=== PATIENT | male | born 1975 | race Caucasian/White ===

== ENCOUNTER 2020-01-16 03:12 | Outpatient (CLI) | payer OTHER, SELFPAY ==
--- NOTE | 2020-01-16 10:30 | DI.RAD_ITS ---
EXAM: XR SHOULDER RT COMPLETE 2+V CLINICAL HISTORY: consider AC separation,ACUTE RT SHOULDER PAIN,M25.511,G89.11 TECHNIQUE: COMPARISON: No exams were available for comparison FINDINGS: Five views were obtained. There is lucency projected over the glenoid on the internal rotation views which is poorly defined not confirmed on other views. Fracture or other bony process not excluded i nvolving the glenoid. Humeral head appears unremarkable. Some slight hypertrophic degenerative solomon ges of the AC joint noted. Cartilaginous joint space of the glenohumeral joint appears fairly well m aintained. IMPRESSION: Question glenoid deformity, fracture not excluded. Additional evaluation with CT recommended if clin ically appropriate. RADIATION DOSE DELIVERED: Total DLP
--- NOTE | 2020-01-16 15:00 | DI.CT_ITS ---
EXAM: CT UPPER EXTREMITY RT WO CLINICAL HISTORY: Plain film reveal lucency - ? frac vs other pathOLOGY, ACUTE PAIN RT SHOULD TECHNIQUE: COMPARISON: No exams were available for comparison FINDINGS: CT examination of the right shoulder was performed utilizing multi slice acquisition multiplanar amanda nstruction. The patient reportedly has a history trauma to the shoulder. Visualized right lung is clear. No axillary adenopathy or mass. There is an area of cortical loss and roughening of the posterior aspect of the glenoid with associat ed small quantities gas in the adjacent soft tissues. Findings are nonspecific and could conceivably represent degenerative change with vacuum joint phenomenon. However a penetrating injury or osteomy elitis of the glenoid are not excluded. Otherwise the bones appear intact. No gross fluid collection identified on soft tissue windows. IMPRESSION: Irregular cortical deformity/cortical loss of posterior aspect of the glenoid with a soft tissue gas component; osteomyelitis or penetrating injury should be considered. Please correlate clinically, ad ditional evaluation with MRI may be indicated. RADIATION DOSE DELIVERED: 383.76mGy.cm Total DLP
== END 2020-01-16 03:32 ==
PROVIDERS: Visit Provider Nurse Practitioner Family
DX: G89.11 Acute pain due to trauma (principal); M25.511 Pain in right shoulder; M89.8X1 Other specified disorders of bone, shoulder
CPT/HCPCS: 73030; 73200

== ENCOUNTER 2020-01-16 16:33 | Emergency (ER) | payer OTHER, SELFPAY ==
[2020-01-16 16:37] VITALS: BP 132/83; PULSE 62; RESP 16; TEMP 36.2; O2SAT 98
--- NOTE | 2020-01-16 16:46 | ED.GENADUL_ITS ---
Discharge Plan Disposition Patient Disposition: HOME Condition: Stable Discharge Details Clinical Impression: Acute pain of right shoulder due to trauma Primary Care Provider: Crys Monk ED Provider: Peyman Kenney Home Meds and New Rx's Prescriptions: No Action No Known Home Meds RF: 0 Discharge Instructions Additional Instructions: your blood work did not show evidence of infection call orthopedics Sunday to arrange for an appointment if you develop fevers or severe worsening pain return to the emergency department Referrals: Flo Alexis MD [ [facility] STAFF PHYSICIAN] - Medical Decision Making 44 yo male who denies chronic medical problems comes in with right shoulder pain. He states at work yesterday he was carrying a ladder and it fell and he went to catch it causing him to hurt his right shoulder, no loc and no head trauma. He had an xray and then CT today showing cortical defect of glenoid and small amount of free air so was directed here by pcp. Dr. Alexis from ortho reviewed ct and called ahead and feels it is most likely a glenoid fx with free air from this, requested inflammatory markers and if reassuring exam and labs can f/u next week. He has no redness of the joint or warmth, pain with palpation to the anterior right shoulder with full range of motion and intact distal sensation and pulses and has not had any fever or chills. Given the mechanism and exam feel infection unlikely, will obtain cbc, crp and esr and reassess. labs reassuring and he remains stable, declines sling. Will have him f/u with ortho Differential Diagnosis Differential Diagnosis: fx, sprain, strain, septic joint HPI General Mode of arrival: ambulatory . Date/Time Provider Initiated Documentation: 01/16/20 16:34 . Limitations to Documentation: no limitations . Information obtained by: patient . History of Present Illness 44 year old M presents to the emergency department with the chief complaint of right shoulder pain, Patient started experiencing this day(s) (1) and it has been constant. Rest improves symptom(s), Movement worsens symptoms . Patient notes no other symptoms.. Related Data Home Medications Medication Instructions Recorded Confirmed Unknown [No Known Home Meds] 01/16/20 01/16/20 Allergies Allergy/AdvReac Type Severity Reaction Status Date / Time Environmental Allergy Intermediate Uncoded 01/16/20 16:43 General Stated Complaint: Orthopedic HANANE: 3 Review of Systems All systems reviewed & are unremarkable except as noted in HPI and below Constitutional Constitutional: Denies chills, Denies fever(s) and Denies weakness Cardiovascular Cardiovascular: Denies chest pain and Denies dyspnea Respiratory Respiratory: Denies cough and Denies dyspnea Gastrointestinal Gastrointestinal: Denies abdominal pain, Denies nausea and Denies vomiting Genitourinary Genitourinary: Denies dysuria Musculoskeletal Musculoskeletal: Denies joint swelling Integumentary/Breasts Skin/Breast: Denies rash Neurologic Neurologic: Denies weakness [facility] Family History Mother Thyroid condition Father Thyroid condition Sister No problems noted. Sister No problems noted. Grandmother No problems noted. Daughter No problems noted. Social History Smoking/Tobacco Use Status: Never Smoking risk assessment performed?: Yes Alcohol Intake: current Alcohol Intake frequency: holidays/special occasions only Drug use: Never Substance use type: does not use Do you feel safe at home: Yes Do you feel safe in your relationship?: Yes Exam Const General: no acute distress Orientation: alert HENMT Head: normal to inspection Ears: external ears normal General nose exam: external nose normal Mouth: moist mucous membranes Eyes General: appearance normal, both eyes and all related structures Neck Neck: normal visual inspection Resp Effort & Inspection: normal respiratory effort and able to speak in complete sentences Cardio Rate: regular rate Skin General skin exam: no rashes or lesions noted Neuro General: patient alert and patient oriented x3 Extrem General: normal to inspection Psych Mental Status: mental status grossly normal Course Vital Signs Vital signs: Vital Signs Temperature 36.2 C L 01/16/20 16:37 Pulse 62 01/16/20 16:37 Respiratory Rate 16 01/16/20 16:37 Blood Pressure 132/83 01/16/20 16:37 Pulse Oximetry 98 01/16/20 16:37 Temperature 36.2 C L 01/16/20 16:37 Temperature Source Skin 01/16/20 16:37 Pulse 62 01/16/20 16:37 Respiratory Rate 16 01/16/20 16:37 Respiratory Effort Non-Labored 01/16/20 16:41 Blood Pressure 132/83 01/16/20 16:37 Blood Pressure Position Sitting 01/16/20 16:37 Pulse Oximetry 98 01/16/20 16:37 Oxygen Delivery Method Room Air 01/16/20 16:37 Oxygen Flow Rate 0 01/16/20 16:37 Pain Level 1 01/16/20 16:37 Comment 01/16/20 16:37
[2020-01-16 17:18] LABS: Abs Immature Grans 0.03 10^3/uL (0.0-0.06); Absolute Basophil Count 0.04 10^3/uL (0.0-0.2); Absolute Eosinophil Count 0.14 10^3/uL (0.0-0.7); Absolute Monocyte Count 0.42 10^3/uL (0.1-0.8); Absolute Neutrophil Count 3.26 10^3/uL (1.2-6.7); Basophils % 0.7; Eosinophils % 2.3; HCT 46.8 % (40.0-50.0); HGB 16.3 g/dL (13.5-17.5); Immature Grans % 0.5; Lymphocytes % 35.1; MCH 30.7 pg (27.0-33.0); MCHC 34.8 % (32.0-36.0); MCV 88.1 fL (80-95); MPV 9.4 fL (8.0-11.0); Neutrophils % 54.4; Nucleated RBC 0 %; Platelet Count 245 10^3/uL (130-400); RBC 5.31 10^6/uL (4.36-5.78); RDW 11.8 % (11.8-14.1); RDW-SD 37.8 fL; WBC 5.99 10^3/uL (4.4-10.8)
[2020-01-16 17:20] LABS: C-Reactive Protein < 0.05 mg/dL (0.0-0.3)
[2020-01-16 17:52] LABS: ESR 5 mm/hr (0-15)
== END 2020-01-16 18:09 | disposition home or self-care (01) ==
PROVIDERS: Emergency Provider Emergency Medicine
DX: M25.511 Pain in right shoulder (principal); X50.9XXA Other and unspecified overexertion or strenuous movements or postures, initial encounter; R93.7 Abnormal findings on diagnostic imaging of other parts of musculoskeletal system
CPT/HCPCS: 36415; 85652; 99283; 85025; 86140

== ENCOUNTER 2020-01-27 01:10 | Outpatient (CLI) | payer OTHER, SELFPAY ==
--- NOTE | 2020-01-27 14:10 | DI.MRI_ITS ---
EXAM: MR UPPER JOINT RT WO CLINICAL HISTORY: Glenoid deformity,TRAUMATIC TEAR RT ROTATOR CUFF,S46.011A. TECHNIQUE: Multiplanar multisequence MRI was performed. COMPARISON: CR XR SHOULDER RT COMPLETE 2+V from 01/16/[address] UPPER EXTREMITY RT WO from 01/16/2020 FINDINGS: BONES: There is a multi-cystic lesion in the posterior aspect of the glenoid with extension into the adjacent soft tissues. This measures 1.9 x 1.3 cm. JOINTS: Hyperintense signal seen on the T2 weighted images in the distal clavicle and adjacent acromi on at the AC joint. Subchondral cysts are noted. No findings to suggest an occult fracture are seen . Findings are suspicious for degenerative changes. AC joint sprain cannot be excluded. The glenoh umeral joint is normal. TENDONS: Supraspinatus: Unremarkable. Infraspinatus: Unremarkable. Subscapularis: Unremarkable. Teres [place]: Unremarkable. Biceps and [place]: Unremarkable. MUSCLES: Unremarkable. GLENOID LABRUM: Unremarkable on this noncontrast examination. SOFT TISSUES: Please see above. LIGAMENTS: Please see above. OTHER: There is a small amount of fluid in the subacromial subdeltoid space. IMPRESSION: 1. Multi-cystic 1.9 x 1.3 cm lesion involving the posterior glenoid. Differential considerations inc lude but are not limited to an intraosseous paralabral cyst, ganglion cyst, a nerve/nerve sheath lesi on cannot be excluded. A cystic neoplasm cannot be excluded. 2. Abnormal signal seen across the acromioclavicular joint as described. This may represent degenera tive changes. Contusion or ligament sprain cannot be excluded. Please correlate clinically. DATA REPOSITORY:
== END 2020-01-27 01:30 ==
PROVIDERS: Visit Provider Student in an Organized Health Care Education/Training Program
DX: M25.811 Other specified joint disorders, right shoulder (principal)
CPT/HCPCS: 73221

== ENCOUNTER 2020-02-20 17:53 | Outpatient (REF) | payer BC, SELFPAY ==
[2020-02-23 14:23] LABS: COVID-19 RT-PCR Result NEGATIVE (Negative)
== END 2020-02-20 18:13 ==
LOC: LBN 17:53
PROVIDERS: Visit Provider Nurse Practitioner Family
DX: R68.83 Chills (without fever) (principal)
CPT/HCPCS: U0003

== ENCOUNTER 2020-03-01 02:39 | Outpatient (CLI) | payer BC, SELFPAY ==
[2020-03-01 13:42] LABS: ALT 46 U/L (16-63); AST 29 U/L (15-37); Albumin 4.7 g/dL (3.4-5.0); Alkaline Phosphatase 68 U/L (46-116); Anion Gap 11.9 mmol/L (3-11); BUN 10 mg/dL (7-18); Bilirubin, Total 2.3 mg/dL (0.2-1.0); CO2 27.1 mmol/L (21.0-32.0); CREATININE 1.19 mg/dL (0.70-1.30); Calculated LDL 94 mg/dL (<100); Chloride 103 mmol/L (98-107); Cholesterol 134 mg/dL (<200); Glucose 77 mg/dL (74-106); HDL Cholesterol 25 mg/dL (40-60); Potassium 3.7 mmol/L (3.5-5.1); Sodium 142 mmol/L (136-145); TSH (W/Ref FT4) 0.28 uIU/mL (0.36-3.74); Total Protein 7.4 g/dL (6.4-8.2); Triglyceride 76 mg/dL (<150)
[2020-03-01 13:58] LABS: FREE T4 1.23 ng/dL (0.76-1.46)
== END 2020-03-01 02:59 ==
DX: Z00.00 Encounter for general adult medical examination without abnormal findings (principal); R42 Dizziness and giddiness; G47.8 Other sleep disorders; G47.00 Insomnia, unspecified; Z13.220 Encounter for screening for lipoid disorders
CPT/HCPCS: 36415; 80053; 80061; 84439; 84443

== ENCOUNTER 2020-06-01 02:20 | Outpatient (CLI) | payer OTHER, SELFPAY ==
[2020-06-01 11:35] LABS: Source Nasal/Nares
[2020-06-01 17:03] LABS: COVID-19 PCR Negative (Negative)
== END 2020-06-01 02:21 | disposition home or self-care (01) ==
PROVIDERS: Visit Provider Student in an Organized Health Care Education/Training Program
DX: Z20.822 Contact with and (suspected) exposure to COVID-19 (principal); Z01.818 Encounter for other preprocedural examination
CPT/HCPCS: 87635

== ENCOUNTER 2020-06-03 09:57 | Day surgery (SDC) | payer OTHER, SELFPAY ==
[2020-06-03 10:08] VITALS: BP 134/84; PULSE 64; RESP 16; TEMP 36.5; O2SAT 95
[2020-06-03] MEDS: Lactated Ringers 1,000 ML 100 ML IV (10:36)
[2020-06-03] MEDS: ceFAZolin 2 GM/50 ML BAG IVPB (13:12)
[2020-06-03] MEDS: EPINEPHrine 30 MG/30 ML VIAL (13:57)
[2020-06-03 15:30] VITALS: BP 96/56; PULSE 64; RESP 18; TEMP 36.6; O2SAT 95
[2020-06-03 15:35] VITALS: BP 111/59; PULSE 64; RESP 18; TEMP 36.6; O2SAT 95
[2020-06-03 15:40] VITALS: BP 114/60; PULSE 66; RESP 23; TEMP 36.6; O2SAT 94
[2020-06-03 15:55] VITALS: BP 108/51; PULSE 74; RESP 26; TEMP 36.6; O2SAT 95
--- NOTE | 2020-06-03 15:59 | W.PM.DSUDISC ---
Discharge Plan Disposition Patient Disposition: HOME Condition: Stable Discharge Details Reason For Visit: Right shoulder surgery Attending Provider: Harinder Rodriguez Primary Care Provider: Crys Monk Home Meds and New Rx's Prescriptions: New naproxen 250 mg tablet 250 - 500 mg PO BID PRN (Reason: Moderate pain or swelling) Qty: 60 RF: 0 aspirin 81 mg tablet,delayed release (DR/EC) 81 mg PO DAILY 14 Days Qty: 14 RF: 0 oxycodone 5 mg tablet 5 - 10 mg PO Q4H PRN (Reason: moderate to severe pain) Qty: 22 RF: 0 Discontinued acetaminophen 500 mg capsule 1,000 mg PO Q6H PRNRF: 0 ibuprofen 200 mg Tablet 600 mg PO PRN PRNRF: 0 Discharge Instructions Additional Instructions: Surgery: Shoulder arthroscopy with extensive debridement, subacromial decompression, and open biceps tenodesis Activity: You should gradually increase range of motion motion and use of your shoulder. Please perform daily stretching exercises. You may use your shoulder for all regular activities. Avoid heavy lifting, reaching overhead, and lifting away from body for approximately 6 to 8 weeks. You may use the sling whenever you are out of the house for a few weeks. At home it is best to remove the sling and rest the arm on a pillow at your side or support the operative side with your other hand. A physical therapy prescription will be sent electronically to start in about 2-3 weeks. Prescriptions: Aspirin 81 mg take 1 daily to prevent a blood clot for 2 weeks Naproxen 250 mg take 1-2 every 12 hours with a meal as needed for moderate pain Oxycodone 5 mg take 1-2 every 4-6 hours as needed for severe pain Avoid Tylenol (acetaminophen) given elevated bilirubin These pain medications may be taken all at once or in different combinations as needed. Also, recommend Colace (docusate) as a stool softener as surgery and pain medicine cause constipation. Dressings: Remove shoulder bandage after 3 days. Leave the sticky Steri-Strips in place until they fall off or remove them after you shower. Cover the incisions with Band-Aids or leave them open to air. The biceps bandage (inside upper arm) is glued on separately. You may leave this one on a few days longer if it is difficult to remove. There is also glue underneath this bandage that can be left in place until it peels off. You may shower after 5 days. Follow-up: 10-[address] Rodriguez (06/16/20 at 8:30 AM) You may take off the leg compression stockings this evening at home. You may also leave them on a few days longer if you have a history of leg swelling or edema. Let us know right away if you develop any redness, drainage, fevers, chest pain, or trouble breathing. Do not drink alcohol or drive for at least 24 hours after anesthesia. Please call the office during business hours with any questions or concerns. Referrals: Harinder Rodriguez MD [ [facility] STAFF PHYSICIAN] - DS: Diagnosis Discharge Diagnosis (1) Paralabral cyst of shoulder: Status: Acute (2) SLAP lesion of right shoulder: Status: Acute (3) Tendonitis of long head of biceps brachii of right shoulder: Status: Acute (4) Bursitis of right shoulder: Status: Acute
--- NOTE | 2020-06-03 16:00 | W.PM.OP ---
Date of service: 06/03/20 Time of Service: 14:00 Operative Note Operative Note DATE OF PROCEDURE: 06/03/20 PRE-OP DIAGNOSIS: Right: 1. SLAP tear 2. LHB tendinopathy 3. Bursitis 4. Para-labral cyst POST-OP DIAGNOSIS: same PROCEDURE: Right: 1. Open biceps tenodesis, CPT# 23686. This involved reattaching the long head of the biceps tendon to the proximal humerus in the sub-pectoral area of the bicipital groove at the correct tension. 2. Extensive debridement, CPT# 36629. This involved using arthroscopic hand instruments, power instruments, and radiofrequency instruments to release to release the long head of the biceps tendon and debride areas of labral tearing anteriorly and posteriorly including SLAP tear superiorly, synovitis especially anteriorly and superiorly, and unstable cartilage flaps and chondromalacia about the posterior glenoid. 3. Subacromial decompression with partial acromioplasty, CPT# 26414. This involved using arthroscopic power instruments and a radiofrequency wand to complete a bursectomy and smooth mild bone spur on undersurface of the acromion. The speech correction assistant was medically required in order to help assist in techniques above, which require positioning the arm, holding the arthroscope, and manipulating multiple instruments and sutures at the same time. This cannot be done without the help of an experienced speech correction assistant. SURGEON: Harinder Rodriguez RIG SUPERVISOR: Katey Underwood ANESTHESIA TYPE: Local By Surgeon, General LMA/ETT and Primary Nerve Block Refer to Anesthesia Record ESTIMATED BLOOD LOSS: 15 PATHOLOGY: none sent COMPLICATIONS: None Patient was transported to: PACU Patient's condition: stable Implants: Arthrex: Unicortical Proximal Biceps Tenodesis Button Indications: The patient was diagnosed with the above conditions and appropriately indicated for surgical intervention. Please see complete medical record for details. Findings: Exam under anesthesia: Full symmetrical range of motion without instability Glenohumeral joint: Significant anterior and superior synovitis. Anterosuperior labral tearing with anterior labral recess. Significant superior labral recess likely nondisplaced SLAP tear with extension posterosuperiorly. Moderate long of the biceps injection inflammation. Chronic appearing posterior labral degenerative tearing with fraying adjacent to posterior chondromalacia with significant cartilage thinning and surrounding unstable thin flaps about 15 mm superior anterior inferior and about 5 mm wide off the posterior articular margin full-thickness cartilage loss. No visible paralabral cyst or cyst decompression. Remainder of humeral head and glenoid with minimal articular cartilage injury. Intact subscapularis and articular sided rotator cuff. Subacromial space: Moderate bursitis. Only mild undersurface acromial bone spur. Minimal AC joint impingement inflammation. Intact bursal rotator cuff. Procedure Description: In the operating room, general anesthesia was induced. Bilateral shoulders were examined. The patient was positioned in the beachchair position. All bony prominences were well-padded. Preoperative antibiotics were administered. The shoulder was prepped and draped in the usual sterile fashion. The correct patient, procedure, and side of the procedure were all verified prior to incision. Starting through the posterior portal a standard complete diagnostic arthroscopy was performed of the glenohumeral joint including inspection of the long head of the biceps, anterior and superior labrum, subscapularis tendon, supraspinatus and infraspinatus tendons, and axillary recess. The glenoid and humeral head cartilage as well as the posterior labrum were inspected from an anterior viewing portal. Significant findings and interventions noted above. The biceps tendon was released from the superior labrum using arthroscopic scissors. Posterior para labral cyst was not obviously identified or decompressed likely owing to complex cystic structure and chronic nature. Multiple attempts were made to enlarge the cyst orifice with mechanical shaver and hand instruments and decompressed the cyst accordingly. Given the chronic degenerative appearing posterior glenoid and adjacent posterior labral tear findings, decision was made to omit any posterior labral repair. Starting through the posterior portal, the arthroscope was directed into the subacromial space. The anterior portal was redirected into the subacromial space.. A combination of power instruments and a radiofrequency ablator were used to debride bursitis anteriorly, posteriorly, and laterally as well as expose the undersurface of the acromion. The coracoacromial ligament was preserved. The bursectomy was completed viewing anteriorly and working from posteriorly and the rotator cuff was thoroughly inspected with findings noted above. 10 cc of 0.25% bupivacaine with epinephrine was infiltrated about a 3 cm longitudinal incision at the inferior margin of the pectoralis major localized over the long head of the biceps tendon. Blunt and sharp dissection were used to expose the tendon in the bicipital groove. The tendon was brought out of the wound and kept off the skin on top of a blue towel. The correct location for sub-pectoral fixation was localized, prepped with a rasp, and then drilled with a 3.2 mm drill pin in a unicortical fashion. Using a fiber loop suture the tendon was prepped from the musculotendinous junction a few centimeters proximal. The excess tendon was amputated. The free suture ends were then passed through the unicortical button implant. The drill pin was removed and the implant was placed into the humeral intramedullary canal. The button was flipped and the sutures were tensioned bringing the tendon down to bone. Tension and fixation were then tested and found to be appropriate. The free ends of the suture brought on either side of the tendon and the free ends of the suture were were tied compressing tendon to bone. The wound was copiously irrigated with normal saline. Subcutaneous tissue was closed using 3-0 Monocryl in a buried interrupted fashion. Skin was closed using 3-0 Monocryl in a buried subcuticular running fashion. Skin glue was applied over the incision. Mastisol was applied about the incision. The incision was covered with Telfa, gauze, and covered with a Tegaderm dressing. The shoulder was drained of arthroscopic fluid. All portal sites were copiously irrigated. These incisions were closed using 3-0 Monocryl in a buried fashion, covered with Mastisol, Steri-Strips, Xeroform, dry gauze, and ABDs. The dressings were covered and secured with Medipore tape. The operative extremity was placed into a sling for immobilization. The patient awoke from anesthesia without complication and was transferred to the recovery room in a stable condition.
[2020-06-03 16:37] VITALS: BP 105/62; PULSE 63; RESP 16; TEMP 36.4; O2SAT 94
== END 2020-06-03 17:23 | disposition home or self-care (01) ==
PROVIDERS: Visit Provider Student in an Organized Health Care Education/Training Program
PROC: (CPT 29805; principal; 2020-06-03 12:15)
PROC: (CPT 23430; 2020-06-03 12:15)
DX: S43.431A Superior glenoid labrum lesion of right shoulder, initial encounter (principal); M75.21 Bicipital tendinitis, right shoulder; M24.111 Other articular cartilage disorders, right shoulder; M75.51 Bursitis of right shoulder; X58.XXXA Exposure to other specified factors, initial encounter; Y99.0 Civilian activity done for income or pay
CPT/HCPCS: 23430; 29823; 29826; 76942; J0690; J1100; J2001; J2250; J2405; J2704

== ENCOUNTER 2022-04-03 17:18 | Outpatient (REF) | payer BC, SELFPAY ==
[2022-04-06 11:10] LABS: COVID-19 RT-PCR UVMMC Result Positive (Negative)
== END 2022-04-03 17:19 | disposition home or self-care (01) ==
LOC: LBN 17:18
PROVIDERS: PCP Nurse Practitioner Family; Visit Provider Nurse Practitioner Family
DX: Z20.822 Contact with and (suspected) exposure to COVID-19 (principal)
CPT/HCPCS: U0003

== ENCOUNTER 2022-11-22 08:02 | Outpatient (CLI) | payer BC, SELFPAY ==
--- NOTE | 2022-11-22 08:00 | RT.EKG_ITS ---
APPROVED REPORT Exam: Resting ECG Reason for Exam: pre-op examination Patient Location: O HR:60 bpm ECG Measurements Heart Rate 60 AXIS OH 168 P 25 QRSd 119 QRS -19 QT 411 T 0 QTc 411 Conclusion Sinus rhythm...normal P axis, V-rate 50- 99 Normal Electrocardiogram
== END 2022-11-22 08:03 | disposition home or self-care (01) ==
LOC: DI.CM 08:03
PROVIDERS: PCP Nurse Practitioner Family; Visit Provider Nurse Practitioner Family
DX: Z01.818 Encounter for other preprocedural examination (principal)
CPT/HCPCS: 93010

== ENCOUNTER → 2022-12-19 13:53 | Outpatient (CLI) | payer OTHER, SELFPAY ==
--- NOTE | 2022-12-19 11:15 | DI.RAD_ITS ---
Exam(s) XR THUMB RT EXAM: XR THUMB RT CLINICAL HISTORY: trauma, consider mallet thumb M79.644 PAIN RT THUMB. TECHNIQUE: 2D digital imaging was performed. Three views. COMPARISON: CR RIGHT HAND COMPLETE from 03/01/2015 FINDINGS: BONES: No acute fracture is present. No bony destructive lesion is seen. JOINTS: No dislocation present. SOFT TISSUE: Swelling IMPRESSION: No evidence of acute fracture, dislocation, or subluxation. DATA REPOSITORY: RADIATION DOSE DELIVERED:
--- OUTSIDE RECORDS SUMMARY | 2022-12-19 13:57 | XMS_ITS | Continuity of Care Document ---
Author Name Unknown Organization [facility] Address [address] [place] [address] Encounter [facility] FIN NBR [id number] Date(s): 04/04/22 - 04/04/22 [facility] [address] [place] [address]- us Discharge Disposition: Home or Self Care Attending Physician: Shantell Puckett PA-C Problem List Condition Confirmation Course Effective Dates Status Health St atus Informant Disease caused by 2019 novel coronavirus 1 Confirmed 04/04/22 Active 1Problem added by Rule (IC_COVID19_AUTO_PROBLEM) following SARS-CoV-2 (COVID-19) PCR (GeneXpert) from Nasopharyngeal Swab collected on 04-APR-2022 10:58:00 EST tested positive for COVID-19.
== END ==
PROVIDERS: PCP Nurse Practitioner Family; Visit Provider Nurse Practitioner Family
DX: M79.644 Pain in right finger(s) (principal)
CPT/HCPCS: 73140

== ENCOUNTER → 2023-02-27 02:32 | Outpatient (CLI) | payer OTHER, SELFPAY ==
--- NOTE | 2023-02-27 07:04 | DI.MRI_ITS ---
Exam(s) MR UPPER EXTREMITY RT WO EXAM: MR UPPER EXTREMITY RT WO CLINICAL HISTORY: THUMB pain 6 weeks post hyperextension injury,M79.644. TECHNIQUE: Multiplanar multisequence MRI was performed. COMPARISON: None. FINDINGS: BONES: There is no evidence of a fracture in the thumb. There is mild marrow edema seen in the base of the 2nd metacarpal bone. There is a question of a fracture of the anterior and medial aspect of t he base of the 2nd metacarpal bone. There is also mild marrow edema seen in the trapezoid bone. The re is otherwise normal marrow signal. JOINTS: Unremarkable. TENDONS: Flexors: Unremarkable. Extensors: Unremarkable. MUSCLES: Unremarkable. SOFT TISSUES: Mild edema in the soft tissues surrounding the base of the 2nd metacarpal bone. LIGAMENTS: Unremarkable. OTHER: IMPRESSION: 1. No evidence of a ligament or tendon tear. 2. Marrow edema in the base of the 2nd metacarpal bone with a question of a fracture at the anterior medial aspect of the base. There is surrounding edema in the soft tissues. A CT scan is recommended of the wrist for further evaluation. DATA REPOSITORY:
== END ==
PROVIDERS: PCP Nurse Practitioner Family; Visit Provider Nurse Practitioner Family
DX: M79.644 Pain in right finger(s) (principal)
CPT/HCPCS: 73218

== ENCOUNTER 2023-05-23 14:34 | Outpatient (REF) | payer BC, SELFPAY ==
[2023-05-23 17:32] LABS: ALT 34 U/L (16-63); AST 21 U/L (15-37); Albumin 4.2 g/dL (3.4-5.0); Alkaline Phosphatase 57 U/L (46-116); Anion Gap 13.5 mmol/L (3-11); BUN 19 mg/dL (7-18); Bilirubin, Total 1.3 mg/dL (0.2-1.0); CO2 25.5 mmol/L (21.0-32.0); CREATININE 1.2 mg/dL (0.70-1.30); Calculated LDL 127 mg/dL (<100); Chloride 104 mmol/L (98-107); Cholesterol 210 mg/dL (<200); Estimated GFR 74.13 (mL/min/1.73m2); Glucose 146 mg/dL (74-106); HDL Cholesterol 32 mg/dL (40-60); Potassium 3.9 mmol/L (3.5-5.1); Sodium 143 mmol/L (136-145); TSH (W/Ref FT4) 0.54 uIU/mL (0.36-3.74); Triglyceride 256 mg/dL (<150)
[2023-05-24 10:24] LABS: HIV-1/2 Ag & Ab Screen Negative (Negative)
== END 2023-05-23 14:35 | disposition home or self-care (01) ==
LOC: LBN 14:34
PROVIDERS: PCP Nurse Practitioner Family; Referring Provider Nurse Practitioner Family; Visit Provider Nurse Practitioner Family
DX: R79.89 Other specified abnormal findings of blood chemistry (principal); Z13.220 Encounter for screening for lipoid disorders; Z11.4 Encounter for screening for human immunodeficiency virus [HIV]; R73.9 Hyperglycemia, unspecified; R94.6 Abnormal results of thyroid function studies; Z00.00 Encounter for general adult medical examination without abnormal findings
CPT/HCPCS: 80053; 80061; 86803; 87389; 84443

== ENCOUNTER 2023-07-20 08:03 | Day surgery (SDC) | payer BC, SELFPAY ==
--- NOTE | 2023-07-19 22:01 | W.COLOREPORT ---
Date of service: 07/20/23 Time of Service: 10:11 Colonoscopy Report Date of procedure: 07/20/23 Pre-op diagnosis general: crc screen Post-op diagnosis procedure note: other (Polyp) Surgeon: Katey Mckeon Anesthesia Type: General:No Airway Estimated blood loss (mL): 1 Pathology: other Complications: None Disposition: same day Prep: Miralax/Dulcolax Retraction Time: 16 Procedure Description: After informed consent was obtained the patient was taken to the procedure room and placed in a left decubitous position. Monitors were applied and a time out was done. The patients name, date of , procedure, allergies to medications and metal in their body was reviewed. The patient was then sedated. Once sedated and comfortable a rectal exam was done. External exam was normal. Internal exam revealed a normal sphincter tone and no palpable masses. The scope was then introduced and retrofelexed. no internal hemorrhoids were identified. The scope was then advanced to the cecum without difficulty. The TI and appendiceal orifice were identified. The scope was then slowly retracted over 16 minutes back into the rectum. He has a 0.5 cm flat polyp at 70 cm that is removed with a cold biting forcep. All specimen is retrieved and no bleeding is noted. There are no diverticula visualized. The mucosa is pink and healthy with a normal vascular pattern the scope was removed and the patient was woken up and taken back to Same day surgery in stable condition. The patient tolerated the procedure well and there were no immediate complications. Follow up: The patient should follow up in 7 years, pending, unless they develop changes in bowel habits or other new gastrointestinal complaints. [place] Bowel Prep [place] Bowel Prep Right Colon: 3 Left Colon: 3 Transverse Colon: 3 Total Score: 9
--- NOTE | 2023-07-19 22:03 | W.PM.DSUDISC ---
Date of service: 07/20/23 Time of Service: 10:19 Discharge Plan Disposition Patient Disposition: HOME Condition: Good Discharge Details Reason For Visit: crc screening Attending Provider: Katey Mckeon Primary Care Provider: Emigdio Rock Home Meds and New Rx's Prescriptions: Continued mirtazapine 7.5 mg tablet 7.5 mg PO QHS Qty: 90 0RF lorazepam 0.5 mg tablet 0.5 mg PO BID PRN (Reason: anxiety) Qty: 14 0RF ibuprofen 200 mg tablet 200 mg PO Q6H PRN scopolamine base 1 mg over 3 days patch 3 day 1 patch transdermal Q3D PRN (Reason: motion sickness) Qty: 4 0RF Rx Instructions: Apply 1 patch behind ear at least 4 hours prior to event Discontinued bisacodyl [Dulcolax (bisacodyl)] 5 mg tablet,delayed release (DR/EC) 5 mg PO ONCE Qty: 4 0RF Rx Instructions: Take per colonoscopy instructions provided by ordering providers office polyethylene glycol 3350 17 gram/dose powder 17 g PO ONCE Qty: 238 0RF Rx Instructions: Take per colonoscopy instructions provided by ordering providers office Discharge Instructions Additional Instructions: DSU Colonoscopy Post-Op Instructions Instructions for Everyone who is given Anesthesia: For your safety, please do the following for the next twenty-four (24) hours: *Do Not operate a motor vehicle (car, truck, motorcycle, etc.) *Do Not drink alcoholic beverages or use any recreational drugs for the first 24 hours or while taking pain medications. The medications in your body may have a reaction that can be dangerous. *Do Not make any important decisions or sign any important papers. Findings: x1 small polyp Follow up: My office will send you a letter in 2 to 3 weeks time with results of the pathology and when we want to repeat the colonoscopy. Most likely 5 to 7 years time. 1. No lifting over 20 pounds or strenuous activity for the first 24 hours after your procedure. After 24 hours there are no restrictions on your activity but you may feel fatigued for a few days. 2. After you arrive home you may have a light meal and return to your normal diet as you can tolerate it without feeling sick to your stomach. 3. You may have a bloated, gaseous feeling in your belly (abdomen) after a colonoscopy. Passing gas and belching will help. Walking or lying down on your left side with your knees flexed may relieve the discomfort. Call the office at [phone] (Office) or [phone] (Hospital) right away if you notice any of the following: a.Vomiting of blood or ?coffee ground stools?. b.Rectal bleeding 1Tbsp, blood clots or continuous bleeding. c.Severe belly (abdominal) pain. d.A hard distended belly (abdomen) and an inability to pass gas. 4. Please don?t expect to have a normal BM (bowel movement) for 2-3 days after your procedure. 5. If there are questions regarding the findings of your procedure, please contact your doctor 6. If you are unable to contact your doctor with a problem, contact the hospital at [phone]. 7. Continue all your regular medications unless directed otherwise. I understand the above instructions and have no questions. Signature of Patient or Adult Escort Name of Responsible Adult Escort Signature of Nurse Date/Time Stand Alone Forms: Anesthesia Discharge Inst., Sergio Nguyen (VINCENZO) Activity:: see above Diet:: see above Discharge Data Discharge Date/Time-TO BE ENTERED AT DEPARTURE: 07/20/23 08:04 DS: Diagnosis Discharge Diagnosis (1) Hyperglycemia: Status: Acute (2) Abnormal thyroid blood test: Status: Acute (3) Increased BMI (body mass index): Status: Acute (4) Screening for malignant neoplasm of colon performed: Status: Acute Asessment and Plan: The patient is seen and examined after their colonoscopy.? The patient has been able to pass gas.? They are not having abdominal pain.? They have been able to tolerate liquids and a snack.? They do not have any nausea or vomiting.? They are not having any chest pain or shortness of breath.??? They are not having any rectal bleeding. Their vital signs have been stable-see nursing notes. We discussed findings during their colonoscopy, and any biopsies that were done/polyps that were removed. The patient will be sent a letter with any biopsy results, and when to repeat the colonoscopy.-see discharge instructions. Patient was given explicit instructions to follow-up regarding colonoscopy-refer to discharge instructions.? We reviewed resumption of medications. Patient verbalized understanding and discharged in stable and satisfactory condition- See nursing notes.
[2023-07-20 08:06] VITALS: BP 138/82; PULSE 79; RESP 18; TEMP 36.6; O2SAT 95
[2023-07-20] MEDS: Lactated Ringers 1,000 ML 80 ML IV (08:27)
--- NOTE | 2023-07-20 08:48 | W.ANESPRE ---
General Info Date of Service Date Performed: 07/20/23 Height: 6 ft Weight: 117.1 kg Body Mass Index (BMI): 34.9 Surgical Procedure: Operation Date: 07/20/23 10:20 Proposed Procedure Side Surgeon elzbieta Mckeon DO Meds Allergies and Home Medications Allergies Allergy/AdvReac Type Severity Reaction Status Date / Time Environmental Allergy Intermediate Other (See Uncoded 07/20/23 08:10 Comment) Home Medication Medication Instructions Recorded scopolamine base 1 mg over 3 days 1 patch transdermal Q3D PRN motion 10/27/22 transdermal patch sickness #4 ea ibuprofen 200 mg tablet 200 mg PO Q6H PRN 01/03/23 lorazepam 0.5 mg tablet 0.5 mg PO BID PRN anxiety #14 tabs 07/09/23 mirtazapine 7.5 mg tablet 7.5 mg PO QHS #90 tabs 07/09/23 Current Visit Medications: Current Medications Generic Name Dose Route Start Last Admin Trade Name Freq PRN Reason Stop Dose Admin Hyoscyamine Sulfate 0.125 mg 07/20/23 03:24 Hyoscyamine 0.125 Mg Sl/Oral/Chew SL 08/19/23 03:23 DIRECTED PRN Ringer's Solution 1,000 mls @ 80 mls/hr 07/20/23 06:00 07/20/23 08:27 IV 08/18/23 23:59 80 mls/hr INFUSION FLAQUITO Administration IV Miscellaneous Supplies 1 each 07/20/23 06:00 Iv Access IV 08/18/23 23:59 DIRECTED FLAQUITO Ondansetron HCl 4 mg 07/20/23 03:24 Ondansetron 4 Mg/2 Ml Vial IVP 08/19/23 03:23 Q4H PRN PRN Nausea / Vomiting Sodium Chloride 0 ml 07/20/23 06:00 Normal Saline Flush 10 Ml Syr IV 08/18/23 23:59 PRN PRN Sodium Chloride 0 ml 07/20/23 06:00 Normal Saline 10 Ml Vial IJ 08/18/23 23:59 DIRECTED PRN Sterile Water 0 ml 07/20/23 06:00 Water,Injection,Sterile 10 Ml Vial IJ 08/18/23 23:59 DIRECTED PRN PFSH Active Problems Active Problems: Problem Status Onset Code Screening for malignant neoplasm of colon performed Z12.11 Hyperglycemia R73.9 Fracture of second metacarpal bone of right hand S62.300A Pain of right thumb M79.644 Increased BMI (body mass index) 02/13/17 R63.8 Paralabral cyst of shoulder S43.439A SLAP lesion of right shoulder S43.431A Annual physical exam Z00.00 Poor sleep pattern G47.8 Abnormal thyroid blood test R79.89 S/P arthroscopy of right shoulder 06/03/20 Z98.890 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 Tobacco Smoking/Tobacco Use Status: Never Passive smoking exposure: Yes Second hand exposure: Yes Alcohol Alcohol Intake: current Alcohol intake frequency: holidays/special occasions only Alcohol type: beer Substance Use Substance use: Never Substance use type: does not use Counseling provided: none Vital Signs and Lab Results Vital Signs Most Recent Vital Signs in EMR: Most Recent Vital Signs Temp Pulse Resp BP Pulse Ox 36.6 C 79 18 138/82 95 07/20/23 08:06 07/20/23 08:06 07/20/23 08:06 07/20/23 08:06 07/20/23 08:06 Lab Results Blood Type / Crossmatch: No Data to Display Complete Blood Count: No Data to Display Complete Metabolic Panel: No Data to Display Liver Function Panel: No Data to Display Coagulation Panel: No Data to Display Cardiac Panel: No Data to Display Arterial Blood Gas: No Data to Display Venous Blood Gas: No Data to Display Pancreas Panel: No Data to Display Thyroid Panel: No Data to Display Infectious Disease: No Data to Display Blood Cultures: No Data to Display Toxicology Panel: No Data to Display Anesthesia Assessment and Plan Anesthesia History Personal History: No History of Anesthesia Complications and PONV Family History: No Family History of Anesthesia Complications Exercise Tolerance Exercise Tolerance: Metabolic Equivalents>4 Pertinent Negatives Pertinent Negatives: No Symptoms of GERD Cardiac & Pulmonary Exam Cardiac Exam: Normal S1/S2 Heart Sounds Pulmonary Exam: Clear Bilateral Breath Sounds Implantable Cardiac Device Does patient have a Pacemaker or an ICD?: No Airway Exam Known Difficult Airway: No Mallampati Class: 2 Mouth Opening: Normal (> 3cm) Thyromental Distance: Greater than 3 cm Neck Range of Motion: Full ROM Neck Circumference: Normal Teeth Condition: Normal Dentition ASA Classification ASA Score: ASA 2 Emergency Case?: No NPO Status NPO Status: NPO Clears >2 hours, Solids >8 hours Anesthesia Plan Resuscitation Status: Full Code Anesthesia Technique: General Anesthesia Airway Planned: Natural Airway Monitors Used: Standard Monitors
[2023-07-20 08:49] VITALS: BMI 34.9
[2023-07-20] MEDS: CLINDAMYCIN 600 MG/50 ML BAG 100 MG IVPB (09:33)
--- NOTE | 2023-07-20 09:51 | BOWEL_PTH ---
PATIENT: Nidhi Wooten LOC: [facility] U#:[id number] AGE/SX: 47/M ROOM: RE07/20/[address]: Katey Mckeon : 1975 BED: DIS: 07/20/2023 SPEC #: [id number] RECD: 07/20/23 13:00 STATUS: TAZ REAlex #: [id number] MUKESH: 07/20/23 09:[address]: Katey Mckeon DEPT: Surgical Specimen RECD BY: Divya Vigil ENTERED: 07/20/23 13:01 SP TYPE: Bowel OTHR DR: Emigdio Reyna, HERSON Tissues: 1 - BIOPSY BOWEL Procedures: GROSS AND MICRO LEVEL 4 Comments: [id number]
[2023-07-20 10:14] VITALS: BP 121/75; PULSE 64; RESP 16; TEMP 36.5; O2SAT 92
--- NOTE | 2023-07-20 10:19 | W.ANESPOSTOP ---
Postoperative Evaluation Date, Time and Location Date Performed: 07/20/23 Time Performed: 10:19 Patient Location: Day Surgery Unit Vital Signs Most Recent Imported Vital Signs: Most Recent Vital Signs Temp Pulse Resp BP Pulse Ox 36.5 C 64 16 121/75 92 07/20/23 10:14 07/20/23 10:14 07/20/23 10:14 07/20/23 10:14 07/20/23 10:14 Pain Score Most Recent Pain Score: Most Recent Pain Score Pain Level 0 07/20/23 10:14 Assessment Mental Status: Arousable with meaningful communication Airway and Respiratory Function: Patent airway with normal (patient baseline) respiratory exam Cardiovascular Function: Hemodynamically Stable Hydration Status: Adequately Hydrated Nausea & Vomiting: No Nausea or Vomiting Pain: Pt. Denies Any Pain Peripheral Nerve Block: Patient did not receive a nerve block
[2023-07-20 10:43] VITALS: BP 128/80; PULSE 61; RESP 16; TEMP 36.6; O2SAT 95
== END 2023-07-20 08:04 | disposition home or self-care (01) ==
LOC: SUR 08:23
PROVIDERS: PCP Nurse Practitioner Family; Visit Provider Surgery
PROC: 0DJD8ZZ Inspection of Lower Intestinal Tract, Via Natural or Artificial Opening Endoscopic (ICD-10-PCS; CPT 45378; principal; 2023-07-20 10:15)
DX: Z12.11 Encounter for screening for malignant neoplasm of colon; D12.4 Benign neoplasm of descending colon
CPT/HCPCS: 45380; 88305; J0737; J2704